=== PATIENT | male | born 1950 | race Two or more races ===

== ENCOUNTER 2023-04-10 15:31 | Inpatient (IN) | payer OTHER ==
[~2023-04-10] VITALS: Ht 175.3 cm; Wt 52.2 kg
[2023-04-10] MEDS ORDERED: GLIMEPIRIDE4 M1 (15:48)
[2023-04-10] MEDS ORDERED: FARXIGA10 MG (15:48)
[2023-04-10] MEDS ORDERED: AMBIEN10 MG (15:48)
[2023-04-10] MEDS ORDERED: NEURONTIN300 MG (15:48)
[2023-04-10] MEDS ORDERED: ZESTRIL20 MG (15:49)
[2023-04-10] MEDS ORDERED: ZOLOFT100 MG (15:49)
[2023-04-10] MEDS ORDERED: ADULT LOW DOSE81 M1 (15:49)
[2023-04-10] MEDS ORDERED: SINGULAIR5 MG (15:49)
[2023-04-10] MEDS ORDERED: TRAZODONE HCL150 MG (15:49)
--- NOTE | 2023-04-10 15:50 | NUR ---
SE RECIBE PTE ALERTA Y ORIENTADO X3 EL CUAL REFIERE VENIR POR HEMMOROIDES Y SANGRADO RECTAL DESDE HACE VARIOS SINHA. PTE REFIERE ESTAR UTILIZANDO CREMA ANTIINFLAMATORIA. SE MIDEN S/V Y SE COLOCA EN ZANDRA DE ESPERA.
[2023-04-10 18:02] LABS: HEMOGLOBIN 12.9 g/dL (13-16.00); MEAN CORPUSCULAR HEMOGLOBIN 30.2 pg (27.00-32.0); MEAN CORPUSCULAR HGB CONC 34.8 g/dl (32.0-36.0); PLATELET COUNT 189 K/uL (150-450); RED BLOOD COUNT 4.25 M/uL (4.00-6.00); RED CELL DISTRIBUTION WIDTH 13.4 % (11.5-14.5)
[2023-04-10 18:17] LABS: PARTIAL THROMBOPLASTIN TIME 28.8 SECONDS (22.0-34.0); PROTHROMBIN TIME 10.5 SECONDS (9.0-11.5)
[2023-04-10 18:22] LABS: ALBUMIN 3.1 gm/dL (3.4-5.0); BILIRUBIN TOTAL 0.69 mg/dL (0.3-1.2); CREATININE SERUM 1.75 mg/dL (0.70-1.30); GFR 38.51; GLOBULINA 3.4 G/DL (2.4-3.5); POTASSIUM 4.25 mEq/L (3.5-5.1); TOTAL PROTEIN 6.5 gm/dL (6.4-8.2)
--- NOTE | 2023-04-10 18:25 | NUR ---
MR. WOOTEN EDUCA A PTE SOBRE [place] MEDICO LORY REFIERE ENTENDER. SE MICHELL MUESTRAS DE LABORATORIO UTILIZANDO MEDIDAS ASEPTICAS. SE COLOCA H/L NAVID DE EDEMA. SE NOTIFICA ESTUDIO DE CT IV PENDIENTE A REALIZAR. SE PREPARA A PTE PARA ESTUDIO RECTAL.
[2023-04-11 06:07] LABS: HEMATOCRIT 39.1 % (39.0-48.0); HEMOGLOBIN 12.9 g/dL (13-16.00); MEAN CELL VOLUME 87.2 fL (80.0-100.00); MEAN CORPUSCULAR HEMOGLOBIN 28.9 pg (27.00-32.0); MEAN CORPUSCULAR HGB CONC 33.1 g/dl (32.0-36.0); PLATELET COUNT 184 K/uL (150-450); RED BLOOD COUNT 4.48 M/uL (4.00-6.00); RED CELL DISTRIBUTION WIDTH 13.3 % (11.5-14.5)
[2023-04-11 06:24] LABS: INR 1.01; PROTHROMBIN TIME 10.6 SECONDS (9.0-11.5)
[2023-04-11 06:27] LABS: ERYTHROCYTE SEDIMENTATION RATE 8 mm/hr
[2023-04-11 06:29] LABS: BILIRUBIN TOTAL 0.74 mg/dL (0.3-1.2); BILIRUBIN,CONJUGATED 0.34 mg/dL (0.0-0.2); BILIRUBIN,UNCONJUGATED 0.4 mg/dL (0.0-0.6); C-REACTIVE PROTEIN 1.44 MG/DL (0.00-0.29); CALCIUM 8.6 mg/dL (8.5-10.1); CREATININE SERUM 1.46 mg/dL (0.70-1.30); GFR 47.46; GLOBULINA 3.3 G/DL (2.4-3.5); POTASSIUM 3.57 mEq/L (3.5-5.1); TOTAL PROTEIN 6.3 gm/dL (6.4-8.2)
[2023-04-11 08:35] LABS: URINE APPEARANCE Clear; URINE BILIRRUBIN Negative (NEGATIVE); URINE BLOOD Negative; URINE COLOR Yellow; URINE GLUCOSE Negative (NEGATIVE); URINE LEUKOCYTE Negative; URINE NITRATE Negative; URINE PROTEIN Negative (NEGATIVE); URINE UROBILINOGEN 0.2 E.U./dl
[2023-04-11 08:41] LABS: URINE BACTERIA 7.5 uL (0.0-1933); URINE EPITHELIAL CELLS 1.8 uL (0.0-38.8)
[2023-04-11 09:13] LABS: URINE RBC 0.1 uL (0.0-20.8); URINE WBC 0.6 uL (0.0-23.2)
[2023-04-12 15:55] LABS: ob POSITIVE (NEGATIVE)
[2023-04-13 07:16] LABS: ALBUMIN 2.9 gm/dL (3.4-5.0); BILIRUBIN TOTAL 0.53 mg/dL (0.3-1.2); CALCIUM 8.6 mg/dL (8.5-10.1); CREATININE SERUM 1.34 mg/dL (0.70-1.30); GFR 52.4; POTASSIUM 3.6 mEq/L (3.5-5.1); TOTAL PROTEIN 5.9 gm/dL (6.4-8.2)
== END 2023-04-13 15:10 | disposition home or self-care (01) | DRG 394 ==
LOC: ER 15:32 → SEC-K 21:08 → SURH 04-11 13:59
PROVIDERS: General Practice; Internal Medicine Nephrology; ADMIT Internal Medicine; ATTEND Internal Medicine
PROC: BW21ZZZ Computerized Tomography (CT Scan) of Abdomen and Pelvis (ICD-10-PCS; principal; 2023-04-10)
DX: K64.3 Fourth degree hemorrhoids (principal); K61.1 Rectal abscess; K62.5 Hemorrhage of anus and rectum; N17.9 Acute kidney failure, unspecified; I10 Essential (primary) hypertension; E11.9 Type 2 diabetes mellitus without complications; Z79.4 Long term (current) use of insulin; Z20.822 Contact with and (suspected) exposure to COVID-19